=== PATIENT | male | born 1990 | race Caucasian/White ===

== ENCOUNTER 2021-05-14 19:45 | Inpatient (IN) | payer OTHER, SELFPAY ==
--- NOTE | ~2021-05-14 | XR_ITS ---
EXAM: XR foot LT 2V HISTORY: BLOOD BLISTER END OF MAR, POPPED, NOW BIG ABSESS ON 1ST MT COMPARISON: None available FINDINGS: Normal mineralization. No fracture or dislocation. No lytic or blastic lesion. Joint space s maintained. No erosion or periosteal change. Soft tissue swelling over the metatarsal heads. IMPRESSION: Soft tissue swelling at the ball of the foot. No radiographic evidence of osteomyelitis. Reviewed, dictated and finalized at location K. IMPRESSION: Soft tissue swelling at the ball of the foot. No radiographic evidence of osteo myelitis.
[2021-05-14 19:54] VITALS: BP 163/102; PULSE 118; RESP 18; TEMP 36.3; O2SAT 99
--- NOTE | 2021-05-14 20:11 | ED.WOUNDLAC ---
HPI - Wound/Laceration General Chief Complaint: Wound/Laceration Stated Complaint: Left toe/foot wound Time Seen by Provider: 05/14/21 19:58 History of Present Illness HPI narrative: 31-year-old male with type 2 diabetes, hypertension, and dyslipidemia, presents the emergency room with new onset of a wound on the bottom of his left foot. Patient states that he is noncompliant with his diabetic regimen, states has not taken his medications for over 1 year. Patient states wound on the bottom of his foot is painful, foul-smelling. Related Data Home Medications Medication Instructions Recorded Confirmed No Home Medications 05/14/21 05/14/21 Allergies Allergy/AdvReac Type Severity Reaction Status Date / Time No Known Allergies Allergy Verified 05/14/21 20:42 Review of Systems Review of Systems: CONSTITUTIONAL: Denies fever, chills, or sweats. EYES: Denies visual changes, redness, or discharge. ENT: Denies rhinorrhea, congestion, sore throat, or otalgia. CARDIOVASCULAR: Denies chest pain, palpitations, or edema. RESPIRATORY: Denies cough or dyspnea. GASTROINTESTINAL: Denies abdominal pain, nausea, vomiting, or diarrhea. GENITOURINARY: Denies dysuria or hematuria. SKIN: Reports foul-smelling wound on bottom of left foot MUSCULOSKELETAL: Denies back pain, joint pain, or myalgia. NEUROLOGIC: Denies headache, numbness, dizziness, or weakness. PSYCHIATRIC: Denies anxiety or depression. [facility] Past Medical History Medical History (Updated 05/14/21 @ 22:16 by Nena Sol DO) Diabetes type 2, uncontrolled Diabetic peripheral neuropathy Dyslipidemia Hypertension Medical non-compliance Optic neuritis (10/2015) Right optic nerve Social History Social History Smoking status: Never smoker Second hand tobacco smoke exposure: No Alcohol intake: never Substance use: never Substance use type: does not use Spiritual care concerns: No Exam Narrative: GENERAL: Well-appearing, well-nourished, and in no acute distress. HEAD: Normocephalic, atraumatic. EYES: PERRLA and EOMI. CHEST: Clear to auscultation. No respiratory distress. No wheezes rales or rhonchi HEART: Regular rate and rhythm. No murmur heard. Normal peripheral pulses. ABDOMEN: Soft, nontender, nondistended, normal active bowel sounds. EXTREMITIES: Normal range of motion. No edema. SKIN: Plantar surface of left foot: 4 cm circular, full-thickness ulcer with surrounding necrosis to the hallucal area NEURO: No focal deficits. Alert and oriented x3. PSYCH: Normal mood and affect. Course Vital Signs Vital signs: Vital Signs Temperature 36.3 C L 05/14/21 19:54 Pulse Rate 118 H 05/14/21 19:54 Respiratory Rate 18 05/14/21 19:54 Blood Pressure 163/102 H 05/14/21 19:54 Pulse Oximetry 99 05/14/21 19:54 Temperature 36.3 C L 05/14/21 19:54 Pulse Rate 105 H 05/14/21 21:46 Respiratory Rate 18 05/14/21 19:54 Blood Pressure 163/102 H 05/14/21 19:54 Pulse Oximetry 99 05/14/21 19:54 MDM - Wound/Laceration Lab Data Result diagrams: 05/14/21 20:43 05/14/21 20:43 Labs: Lab Results 05/14/21 05/14/21 05/14/21 Range/Units 20:43 20:43 20:43 WBC 8.0 (4.5-10.0) K/mm3 RBC 5.46 (4.6-6.20) M/mm3 Hgb 15.8 (14.0-18.0) g/dL Hct 45.9 (42.0-52.0) % MCV 84.1 (80-100) fl MCH 28.9 (26-34) pg MCHC 34.4 (32-36) g/dl RDW 12.2 (11.5-14.5) % Plt Count 245 (150-375) k/mm3 MPV 9.8 (7.4-10.4) fl Immature Gran % (Auto) 0.4 (0-0.5) % Neut % (Auto) 62.8 (45.5-73.1) % Lymph % (Auto) 25.3 (18.3-44.2) % Holt % (Auto) 10.0 H (2.6-8.5) % Eos % (Auto) 1.0 (0-4.4) % Baso % (Auto) 0.5 (0.2-1.2) % Lymph # (Auto) 2.02 (0.9-3.2) K/mm3 Holt # (Auto) 0.8 H (0.1-0.6) K/mm3 Eos # (Auto) 0.1 (0-0.3) K/mm3 Baso # (Auto) 0.0 (0.0-0.1) K/mm3 Abs Immat Gran (auto) 0.03 (0.00-0.031) K/mm3 Absolute Neuts (auto) 5.0 (1.3
[2021-05-14] MEDS: SODIUM CHLORIDE 0.9% IV 1,000 ML 150 ML IV CONT (20:45)
[2021-05-14 20:56] LABS: Basophils Percent Auto 0.5 % (0.2-1.2); Eosinophils Absolute Auto 0.1 K/mm3 (0-0.3); Hematocrit 45.9 % (42.0-52.0); Hemoglobin 15.8 g/dL (14.0-18.0); Immature Granulocyte Absolute 0.03 K/mm3 (0.00-0.031); Immature Granulocyte Percent A 0.4 % (0-0.5); Lymphocytes Absolute Auto 2.02 K/mm3 (0.9-3.2); Lymphocytes Percent Auto 25.3 % (18.3-44.2); Mean Corpuscular HGB Conc 34.4 g/dl (32-36); Mean Corpuscular Hemoglobin 28.9 pg (26-34); Mean Corpuscular Volume 84.1 fl (80-100); Mean Platelet Volume 9.8 fl (7.4-10.4); Monocytes Absolute Auto 0.8 K/mm3 (0.1-0.6); Neutrophils Percent Auto 62.8 % (45.5-73.1); Platelet Count Result 245 k/mm3 (150-375); Red Blood Count 5.46 M/mm3 (4.6-6.20); Red Cell Distribution Width 12.2 % (11.5-14.5)
[2021-05-14 21:06] LABS: Alanine Aminotransferase 23 U/L (4-50); Albumin Level 4.5 g/dL (3.5-5.1); Alkaline Phosphatase 108 U/L (38-126); Anion Gap 8 mmol/L (8-16); Aspartate Amino Transferase 26 U/L (17-59); Bilirubin,Total 0.4 mg/dL (0.2-1.3); Blood Urea Nitrogen 15 mg/dL (9-20); Calcium 9.3 mg/dL (8.4-10.2); Carbon Dioxide 29 mmol/L (22-30); Chloride 98 mmol/L (98-107); Estimated CRCL calculation 124 ml/min; Estimated Glomerular Filt Rate > 60; Glucose 368 mg/dL (65-110); Potassium 4.4 mmol/L (3.4-5.0); Sodium 135 mmol/L (137-145)
[2021-05-14 21:07] LABS: Lactic Acid Reflex 1.7 mmol/L (0.7-2.1)
[2021-05-14 21:15] LABS: Hemoglobin A1C 9.5 % (<5.7)
[2021-05-14 21:46] VITALS: PULSE 105
[2021-05-14] MEDS: METOPROLOL TARTRATE INJ 5 MG/5 ML VIAL IV PUSH (21:46)
[2021-05-14] MEDS: INSULIN ASPART (*BKC) 100 UNITS/ML 6 UNITS SUB-Q (21:47)
--- NOTE | 2021-05-14 22:09 | PM.IMHP ---
H&P: HPI History of Present Illness Date/Time: 05/14/21 22:09 Chief Complaint: Foot wound Narrative: 31-year-old male with past medical history of type 2 diabetes mellitus, hyperlipidemia, obesity and hypertension who presented to the ER from home due to left forefoot diabetic wound. Patient reports that he has had a wound on his foot since March. Started with what looks like a blood blister. He left the wound intact and was using Neosporin. However couple of days ago the skin overlying the wound started to change in color and texture. He had sloughing of the skin and subsequently removed it. About 2 days ago he noticed foul smelling dark drainage from the wound. He denied having any fevers or chills. He has very little sensation in his feet due to diabetic peripheral neuropathy. 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 He has chronically uncontrolled diabetes mellitus. He reports that he was initially started on Lantus and sliding scale insulin. He then switched to just metformin. When he ran out of metformin 2 years ago he never followed up to get a refill. He has not been on any of his medications in 2 years. He was previously also on lisinopril, a cholesterol medicine and metoprolol. He reports that over the last 2 years he has lost at least 50 lb. He reports that previous laying when they actually had a scale at home the scale would read error as he weighed more than 300 lb. Today he weighs 255 lb. They got rid of the scale at home when his sister developed an eating disorder to he has not weighed himself in quite some time. He denies any vision changes. His last eye exam was 2 years ago. He denies having any fevers or chills. He received a 2nd COVID vaccine in December 2020 and caught COVID in January 2021. He has not had any upper respiratory symptoms. He reports feeling slightly nauseated today because he gets a significant amount of social anxiety. Review of Systems Review of Systems: 12 systems were reviewed with pertinent positives and negatives per HPI. Except as documented in the HPI, all other systems were reviewed and are negative. [facility] [place] Past Medical History Medical History (Updated 05/14/21 @ 22:16 by Nena Sol DO) Diabetes type 2, uncontrolled Diabetic peripheral neuropathy Dyslipidemia Hypertension Medical non-compliance Optic neuritis (10/2015) Right optic nerve Surgical History Surgical History (Updated 05/15/21 @ 01:03 by Nena Sol DO) No significant past surgical history Family History Family History Mother Rheumatoid arthritis Father Unknown family medical history Social History Social History (Updated 05/15/21 @ 01:05 by Nena Sol DO) Social History: He is single and has never been . He does not have any children. The patient lives at home with his mother and stepfather as well as several younger siblings. He is a lifelong nonsmoker and does not drink alcohol. 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 Smoking status: Never smoker Second hand tobacco smoke exposure: No Alcohol intake: never Substance use: never Substance use type: does not use Spiritual care concerns: No Meds Home Medications and Allergies Home Medications Medication Instructions Recorded Confirmed Type No Home Medications 05/14/21 05/14/21 History Allergies Allergy/AdvReac Type Severity Reaction Status Date / Time No Known Allergies Allergy Verified 05/14/21 20:42 Vital Signs Vital Signs - 24 hr 05/14/21 19:54 05/14/21 21:46 Temperature 97.3 F L Pulse Rate 118 H 105 H Respiratory Rate 18 Blood Pressure 163/102 H Pulse Oximetry 99 Exam Narrative: PHYSICAL EXAM: WEIGHT 114.5 kg BMI 33.3 General: No acute distress, obese HEENT: Mucous membranes are moist, no oral pharyngeal erythema,
[2021-05-14] MEDS: SODIUM CHLORIDE 0.9% IV 1,000 ML 999 ML IV CONT (22:43)
--- NOTE | 2021-05-14 23:25 | ADMGEN ---
This patient, Taqueria Shelton, was admitted to [address] [place] [address] Room [facility] at 2300. Patient/family oriented to hospital policies and general routines including ID bracelet, bed and alarms, visiting hours, pain management, procedures, bathroom and other care routines, personal items, smoking policy, room service/diet, and visiting hours. Information on how to activate the Rapid Response Team has been discussed. Patient/Family are encouraged to report perceived risks to care and to ask questions if they do not understand what they are told or what they should do.
[2021-05-15] VITALS (9 sets, daily range): BP systolic 122–145; BP diastolic 53–93; PULSE 80–102; RESP 18–21; TEMP 36.2–36.5; O2SAT 99–100; BMI 33.9
[2021-05-15 01:00] LABS: Glucose Point of Care 330 mg/dl (65-105)
[2021-05-15 05:27] LABS: Hematocrit 42.7 % (42.0-52.0); Hemoglobin 14.5 g/dL (14.0-18.0); Mean Corpuscular Hemoglobin 28.9 pg (26-34); Mean Corpuscular Volume 85.2 fl (80-100); Mean Platelet Volume 9.7 fl (7.4-10.4); Platelet Count Result 212 k/mm3 (150-375); Red Blood Count 5.01 M/mm3 (4.6-6.20); Red Cell Distribution Width 12.1 % (11.5-14.5)
[2021-05-15 05:36] LABS: Cholesterol 189 mg/dL (0-200); HDL Direct 28 mg/dL; Triglycerides 417 mg/dL (<150)
[2021-05-15 05:45] LABS: Potassium 3.8 mmol/L (3.4-5.0)
[2021-05-15 05:46] LABS: LDL Cholesterol Direct 76 mg/dL
[2021-05-15 05:58] LABS: Anion Gap 6 mmol/L (8-16); Blood Urea Nitrogen 13 mg/dL (9-20); CRP 1.5 mg/dL (<1.0); Calcium 8.4 mg/dL (8.4-10.2); Carbon Dioxide 27 mmol/L (22-30); Chloride 102 mmol/L (98-107); Estimated CRCL calculation 201 ml/min; Estimated Glomerular Filt Rate > 60; Glucose 265 mg/dL (65-110); Sodium 135 mmol/L (137-145)
[2021-05-15 07:02] LABS: Erythrocyte Sedimentation Rate 20 mm/hr (0-20)
[2021-05-15 07:40] LABS: Glucose Point of Care 235 mg/dl (65-105)
[2021-05-15] MEDS: INSULIN ASPART (*BKC) 100 UNITS/ML SUB-Q ×3 (07:49→16:46)
[2021-05-15] MEDS: lisinopriL 20 MG TABLET PO (08:03)
[2021-05-15] MEDS: metFORMIN HCL 500 MG TABLET PO ×2 (08:03→16:47)
[2021-05-15] MEDS: ATORVASTATIN 20 MG TABLET PO (08:03)
[2021-05-15] MEDS: ENOXAPARIN 40 MG/0.4 ML SYRINGE SUB-Q (08:03)
--- NOTE | 2021-05-15 09:33 | PM.IMPN ---
Progress Note: A&P Assessment and Plan (1) Diabetic ulcer of left foot: Qualifiers: Diabetic foot ulcer location: midfoot Diabetes mellitus type: type 2 Non-pressure ulcer stage: unspecified non-pressure ulcer stage Qualified Code(s): E11.621 - Type 2 diabetes mellitus with foot ulcer; L97.429 - Non-pressure chronic ulcer of left heel and midfoot with unspecified severity Code(s): E11.621 - Type 2 diabetes mellitus with foot ulcer; L97.529 - Non-pressure chronic ulcer of other part of left foot with unspecified severity Status: Acute Assessment and Plan: Surgical consult for possible debridement. ESR is normal, white count is normal, no systemic symptoms to represent sepsis. Low suspicion of osteomyelitis given x-ray is negative. Continue IV antibiotics. Cultures pending (2) Diabetic infection of left foot: Code(s): E11.628 - Type 2 diabetes mellitus with other skin complications; L08.9 - Local infection of the skin and subcutaneous tissue, unspecified Status: Acute Assessment and Plan: See plan above (3) Type 2 diabetes mellitus with hyperglycemia: Qualifiers: Diabetes mellitus alf insulin use: without alf use Qualified Code(s): E11.65 - Type 2 diabetes mellitus with hyperglycemia Code(s): E11.65 - Type 2 diabetes mellitus with hyperglycemia Status: Acute Assessment and Plan: Try to manage blood sugars in the hospital to allow for proper healing. Continue sliding scale insulin. Patient has significant noncompliance with elevated A1c (4) Essential hypertension: Code(s): I10 - Essential (primary) hypertension Status: Acute Assessment and Plan: Monitor (5) Medical non-compliance: Code(s): Z91.19 - Patient's noncompliance with other medical treatment and regimen Status: Acute Assessment and Plan: Discussed the patient in detail, he will be more compliant in the future Subjective Date/time seen: 05/15/21 09:33 Patient feels okay today, no complaints. Exam Narrative: PHYSICAL EXAM: WEIGHT 114.5 kg BMI 33.3 General: No acute distress, obese HEENT: Mucous membranes are moist, no oral pharyngeal erythema, pupils are equal and reactive Respiratory: Clear to auscultation bilaterally, no increased work of breathing Cardiovascular: Sinus tachycardia, 2+ bilateral radial pedal pulses Gastrointestinal: Soft, nontender, nondistended, positive bowel sounds Skin: No jaundice, no pallor Musculoskeletal: Ulceration to the base of the 1st metatarsal on the ball of the foot with surrounding black necrotic appearing tissue, owned was probed the patient has no sensation to the area, fascial tissue noted Neurological: Decreased sensation of bilateral feet, speech is clear, no facial asymmetry, no localizing neurologic deficits noted on limited exam Psychiatric: Appropriate mood and affect, pleasant and cooperative : Deferred Hematologic/lymphatic: No significant lymphadenopathy, no petechiae, no bruising Objective Data Vital Signs Vital Signs: Vital Signs - 24 hr 05/14/21 19:54 05/14/21 21:46 05/15/21 00:29 Temperature 97.3 F L 97.7 F Pulse Rate 118 H 105 H 102 H Respiratory Rate 18 21 H Blood Pressure 163/102 H 145/93 H Pulse Oximetry 99 100 05/15/21 04:00 05/15/21 06:00 05/15/21 08:00 Temperature 97.1 F L Pulse Rate 80 87 98 Respiratory Rate 20 Blood Pressure 133/91 H Pulse Oximetry 99 Intake/Output Intake/Output: Intake & Output 05/12/21 05/13/21 05/14/21 05/15/21 23:59 23:59 23:59 23:59 Intake Total 1000 240 Balance 1000 240 Meds/Results Medications: Active Medications Generic Name Dose Route Start Last Admin Trade Name Freq PRN Reason Stop Dose Admin Atorvastatin Calcium 20 mg 05/15/21 09:00 05/15/21 08:03 Atorvastatin 20 Mg Tablet PO 20 mg DAILY SUNITA Administration Dextrose 12.5 gm 05/15/21 00:53 Dextrose 50% 25 Gm/50 Ml Syringe
--- NOTE | 2021-05-15 11:18 | PM.CNGS ---
Assessment and Plan Assessment and plan (1) Diabetic ulcer of left foot: Qualifiers: Diabetes mellitus type: type 2 Diabetic foot ulcer location: midfoot Non-pressure ulcer stage: unspecified non-pressure ulcer stage Qualified Code(s): E11.621 - Type 2 diabetes mellitus with foot ulcer; L97.429 - Non-pressure chronic ulcer of left heel and midfoot with unspecified severity Code(s): E11.621 - Type 2 diabetes mellitus with foot ulcer; L97.529 - Non-pressure chronic ulcer of other part of left foot with unspecified severity Status: Acute Assessment and Plan: Significant callus overlying the ulcer. Will proceed with excisional debridement at the bedside. No osteomyelitis by plain films and very little evidence of cellulitis by exam. (2) Diabetes type 2, uncontrolled: Qualifiers: Glycemic state: with hyperglycemia Qualified Code(s): E11.65 - Type 2 diabetes mellitus with hyperglycemia Status: Acute Assessment and Plan: hospitalist service managing. (3) Medical non-compliance: Code(s): Z91.19 - Patient's noncompliance with other medical treatment and regimen Status: Acute History of Present Illness Consult details Consult date: 05/15/21 Reason for consult: wound care ( Left 1st metatarsal diabetic foot ulcer) Narrative: patient is a 31-year-old man who stopped taking his diabetic medications entirely over a year ago. For the last 2 months he has noticed 1st a blister than a wound over the 1st metatarsal on the plantar surface of his left foot. This has gotten progressively worse. He came to the emergency room yesterday and was admitted last night. We have been asked to see him regarding a diabetic foot ulcer on his 1st metatarsal. Plain films did not show osteomyelitis. He has no sensation in the foot whatsoever. Hemoglobin A1c was 9.. Blood sugar on admission was 368. This morning it is 265. He has not had any fever or chills. Review of Systems Review of Systems: All systems reviewed & are unremarkable except as noted in HPI and below Constitutional: Constitutional: Denies chills and Denies fever(s) Cardiovascular: Cardiovascular: Denies chest pain, Denies diaphoresis, Denies dyspnea and Denies paroxysmal nocturnal dyspnea Respiratory: Respiratory: Denies chest congestion, Denies cough and Denies dyspnea Integumentary/Breasts: Skin/Breast: Denies lesions and Denies rash PMFSH Past Medical History Medical History Diabetes type 2, uncontrolled Diabetic peripheral neuropathy Dyslipidemia Hypertension Medical non-compliance Optic neuritis (10/2015) Right optic nerve Surgical History Surgical History No significant past surgical history Family History Family History (Reviewed 05/15/21 @ 11: by Kin Barger MD) Mother Rheumatoid arthritis Father Unknown family medical history Social History Social History Social History: He is single and has never been . He does not have any children. The patient lives at home with his mother and stepfather as well as several younger siblings. He is a lifelong nonsmoker and does not drink alcohol. 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 Smoking status: Never smoker Second hand tobacco smoke exposure: No Alcohol intake: never Substance use: never Substance use type: does not use Spiritual care concerns: No Meds Home Medications and Allergies Home Medications Medication Instructions Recorded Confirmed Type No Home Medications 05/14/21 05/14/21 History Allergies Allergy/AdvReac Type Severity Reaction Status Date / Time No Known Allergies Allergy Verified 05/14/21 20:42 Vital Signs Vital Signs - 24 hr 05/14/21 19:54 05/14/21 21:46 05/15/21 00:29 Temperature
[2021-05-15 11:40] LABS: Glucose Point of Care 316 mg/dl (65-105)
[2021-05-15 11:40] LABS: Glucose Point of Care 341 mg/dl (65-105)
--- NOTE | 2021-05-15 12:39 | W.PM.PROC2 ---
Procedure Note - Detailed Date of Procedure 05/15/21 Pre-op Diagnosis Diabeti Foot Ulcer Post-op Diagnosis Same Procedure Performed Excisional debridement skin and subcutaneous left 1st metatarsal Liliane perforans ulcer Surgeon Kin Barger MD Anesthesia None Indications patient has out a controlled diabetes and a painful left 1st metatarsal Liliane perforans ulcer. There was a large amount of callus and possibly some purulent material under the callus. He has no sensation of the area. Will debride at the bedside. Findings No purulent fluid noted. Does have a 1.5 cm ulcer that appears clean. 3.7 x 3.6 cm excisional debridement of skin and subcutaneous. Description of Procedure The patient was in his hospital bed. The left foot was prepped with Betadine. Callus including some subcutaneous was excised starting in the middle of the Liliane perforans ulcer. This was mostly callus and 95% of it was excisionally debrided. There was a 1.5 cm nelson perforans ulcer over the 1st metatarsal. A small amount of necrotic material here was excised. Bleeding was controlled with silver nitrate cautery. No purulent fluid or black and tissue was noted other than the callus. Patient tolerated well. Wound was dressed with a small piece of Xeroform gauze, 4x4s and Kerlix wrap. Estimated Blood Loss -2 Drains No Packing No Pathology None sent Complications No immediate complications Condition Stable Disposition Floor
[2021-05-15 16:39] LABS: Glucose Point of Care 237 mg/dl (65-105)
[2021-05-15] MEDS: SILVER NITRATE (*SP) STICK 1 EACH TOPICAL (16:47)
[2021-05-15 20:24] LABS: Glucose Point of Care 257 mg/dl (65-105)
[2021-05-16] VITALS (9 sets, daily range): BP systolic 116–133; BP diastolic 78–84; PULSE 68–100; RESP 18–21; TEMP 36.5–36.9; O2SAT 97–100; BMI 33.9
[2021-05-16 06:14] LABS: Estimated CRCL calculation 201 ml/min; Estimated Glomerular Filt Rate > 60
[2021-05-16 07:47] LABS: Glucose Point of Care 239 mg/dl (65-105)
[2021-05-16] MEDS: lisinopriL 20 MG TABLET PO (08:15)
[2021-05-16] MEDS: metFORMIN HCL 500 MG TABLET PO (08:15)
[2021-05-16] MEDS: ENOXAPARIN 40 MG/0.4 ML SYRINGE SUB-Q (08:15)
[2021-05-16] MEDS: INSULIN ASPART (*BKC) 100 UNITS/ML SUB-Q ×3 (08:16→16:48)
[2021-05-16] MEDS: ATORVASTATIN 20 MG TABLET PO (08:16)
--- NOTE | 2021-05-16 11:02 | PM.PNGS ---
Progress Note: A&P Assessment and Plan (1) Diabetic ulcer of left foot: Qualifiers: Diabetic foot ulcer location: midfoot Diabetes mellitus type: type 2 Non-pressure ulcer stage: unspecified non-pressure ulcer stage Qualified Code(s): E11.621 - Type 2 diabetes mellitus with foot ulcer; L97.429 - Non-pressure chronic ulcer of left heel and midfoot with unspecified severity Code(s): E11.621 - Type 2 diabetes mellitus with foot ulcer; L97.529 - Non-pressure chronic ulcer of other part of left foot with unspecified severity Status: Acute Assessment and Plan: S/p bedside debridement of left diabetic foot ulcer yesterday. Wound care evaluated the patient today. Will start Xeroform dressing changes daily. Okay to be discharged home from our standpoint. Follow-up with Dr. Barger in 1 week. Recommended the patient establish care with a Resource Room Teacher for proper shoes and offloading insoles, as well as to surgically evaluate any need for further intervention to prevent future complications. (2) Diabetes type 2, uncontrolled: Qualifiers: Glycemic state: with hyperglycemia Qualified Code(s): E11.65 - Type 2 diabetes mellitus with hyperglycemia Status: Acute Assessment and Plan: Stressed the importance of following with a PCP after discharge for diabetic management and complying with medication. Management per Hospitalist. (3) Medical non-compliance: Code(s): Z91.19 - Patient's noncompliance with other medical treatment and regimen Status: Acute Additional Plan I have discussed the patient's case and plan of care with Dr. Barger. Subjective Subjective Date/Time Seen: 05/16/21 11:02 Patient reports: no new complaints and afebrile Interval history: 31 yo M with uncontrolled diabetes mellitus that stopped taking his diabetic medication over a year ago, who presented to the ER with a left foot ulcer on the plantar aspect of the foot over the head of the 1st metatarsal. He was admitted and started on broad-spectrum IV antibiotics. Dr. Barger performed a bedside excisional debridement of the diabetic left foot ulcer yesterday. Chart reviewed and the patient was seen and examined this morning. The wound care nurses were also consulted and saw the patient prior to my arrival. They had already assessed and bandaged his wound, therefore I did not remove the dressing myself this morning. The patient has no specific complaints. Review of Systems Review of Systems: All systems reviewed & are unremarkable except as noted in HPI and below Exam Const: General: comfortable and no acute distress Orientation/consciousness: patient oriented x3 Skin: Other: Left foot with dressing dry and intact. Extrem: Left lower extremity: full ROM, normal capillary refill and foot (neuropathy) Details: toes with normal ROM and no edema Psych: Insight: Fair insight present (Psych) Judgement: Fair judgement present (Psych) Objective Data Vital Signs Vital Signs: Vital Signs - 24 hr 05/15/21 12:00 05/15/21 14:00 05/15/21 16:00 Temperature 97.5 F L Pulse Rate 96 94 90 Respiratory Rate 18 Blood Pressure 122/53 L Pulse Oximetry 99 05/15/21 20:00 05/15/21 22:00 05/16/21 00:00 Temperature 97.2 F L Pulse Rate 92 90 85 Respiratory Rate 18 21 H Blood Pressure 128/88 Pulse Oximetry 99 100 05/16/21 04:00 05/16/21 06:00 05/16/21 08:00 Temperature 97.7 F Pulse Rate 68 84 90 Respiratory Rate 21 H Blood Pressure 116/81 Pulse Oximetry 100 Intake/Output Intake/Output: Intake & Output 05/13/21 05/14/21 05/15/21 05/16/21 23:59 23:59 23:59 23:59 Intake Total 1000 2540 1440 Output Total 600 1600 Balance 1000 1940 -160 Meds/Results Medications: Active Medications Generic Name Dose Route Start Last Admin Trade Name Freq PRN Reason Stop Dose Admin Atorvastatin Calcium 20 mg 05/15/21 09:00 05/16/21 08:16 Atorvastatin 20 Mg Tablet PO 20 mg DAILY SUNITA Admin
[2021-05-16 11:26] LABS: Vancomycin Trough 8.3 ug/mL (10.0-20.0)
[2021-05-16 11:35] LABS: Glucose Point of Care 256 mg/dl (65-105)
--- NOTE | 2021-05-16 14:30 | PM.IMPN ---
Progress Note: A&P Assessment and Plan (1) Diabetic ulcer of left foot: Qualifiers: Diabetic foot ulcer location: midfoot Diabetes mellitus type: type 2 Non-pressure ulcer stage: unspecified non-pressure ulcer stage Qualified Code(s): E11.621 - Type 2 diabetes mellitus with foot ulcer; L97.429 - Non-pressure chronic ulcer of left heel and midfoot with unspecified severity Code(s): E11.621 - Type 2 diabetes mellitus with foot ulcer; L97.529 - Non-pressure chronic ulcer of other part of left foot with unspecified severity Status: Acute Assessment and Plan: sp surgerical debridement. Continue IV antibiotics. (2) Diabetic infection of left foot: Code(s): E11.628 - Type 2 diabetes mellitus with other skin complications; L08.9 - Local infection of the skin and subcutaneous tissue, unspecified Status: Acute Assessment and Plan: See plan above (3) Type 2 diabetes mellitus with hyperglycemia: Qualifiers: Diabetes mellitus custodial insulin use: without termite control technician use Qualified Code(s): E11.65 - Type 2 diabetes mellitus with hyperglycemia Code(s): E11.65 - Type 2 diabetes mellitus with hyperglycemia Status: Acute Assessment and Plan: increase dm medication consult dm educator and dietican. Continue sliding scale insulin. Patient has significant noncompliance with elevated A1c (4) Essential hypertension: Code(s): I10 - Essential (primary) hypertension Status: Acute Assessment and Plan: Monitor (5) Medical non-compliance: Code(s): Z91.19 - Patient's noncompliance with other medical treatment and regimen Status: Acute Assessment and Plan: importance of compliance discussed in length Subjective Date/time seen: 05/16/21 14:30 Interval history: 31-year-old male with past medical history of type 2 diabetes mellitus, hyperlipidemia, obesity and hypertension who presented to the ER from home due to left forefoot diabetic wound. Pt states he has not been taking his DM medications. Pt started on metformin and Januvia here. DM educator and holiday detector operator consulted. Sugars are still 250. Hopeful discharge ileana Am. Review of Systems Review of Systems: All systems reviewed & are unremarkable except as noted in HPI and below Exam Narrative: Overweight younger man Respiratory: Clear to auscultation bilaterally, no increased work of breathing Cardiovascular: Sinus tachycardia, 2+ bilateral radial pedal pulses Gastrointestinal: Soft, nontender, nondistended, positive bowel sounds Skin: No jaundice, no pallor Musculoskeletal: L foot with dressing Psychiatric: Appropriate mood and affect, pleasant and cooperative Objective Data Vital Signs Vital Signs: Vital Signs - 24 hr 05/15/21 16:00 05/15/21 20:00 05/15/21 22:00 Temperature 36.2 C L Pulse Rate 90 92 90 Respiratory Rate 18 21 H Blood Pressure 128/88 Pulse Oximetry 99 100 05/16/21 00:00 05/16/21 04:00 05/16/21 06:00 Temperature 36.5 C Pulse Rate 85 68 84 Respiratory Rate 21 H Blood Pressure 116/81 Pulse Oximetry 100 05/16/21 08:00 05/16/21 12:00 Temperature Pulse Rate 90 84 Respiratory Rate Blood Pressure Pulse Oximetry Intake/Output Intake/Output: Intake & Output 05/13/21 05/14/21 05/15/21 05/16/21 23:59 23:59 23:59 23:59 Intake Total 1000 2540 2280 Output Total 600 1600 Balance 1000 1940 680 Meds/Results Medications: Active Medications Generic Name Dose Route Start Last Admin Trade Name Freq PRN Reason Stop Dose Admin Atorvastatin Calcium 20 mg 05/15/21 09:00 05/16/21 08:16 Atorvastatin 20 Mg Tablet PO 20 mg DAILY SUNITA Administration Dextrose 12.5 gm 05/15/21 00:53 Dextrose 50% 25 Gm/50 Ml Syringe IV PUSH PRN PRN Hypoglycemia Protocol Enoxaparin Sodium 40 mg 05/15/21 09:00 05/16/21 08:15 Enoxaparin 40 Mg/0.4 Ml Syringe SUB-Q 40 mg DAILY SUNITA Administra
[2021-05-16 16:44] LABS: Glucose Point of Care 220 mg/dl (65-105)
[2021-05-16 20:34] LABS: Glucose Point of Care 196 mg/dl (65-105)
[2021-05-17] VITALS: PULSE 80
[2021-05-17 04:00] VITALS: PULSE 80
[2021-05-17 04:28] VITALS: BP 120/76; PULSE 83; RESP 20; TEMP 36.1; O2SAT 99
[2021-05-17 07:51] LABS: Glucose Point of Care 237 mg/dl (65-105)
[2021-05-17 08:00] VITALS: PULSE 87
[2021-05-17] MEDS: ENOXAPARIN 40 MG/0.4 ML SYRINGE SUB-Q (08:42)
[2021-05-17] MEDS: ATORVASTATIN 20 MG TABLET PO (08:42)
[2021-05-17] MEDS: lisinopriL 20 MG TABLET PO (08:42)
[2021-05-17] MEDS: INSULIN ASPART (*BKC) 100 UNITS/ML SUB-Q ×2 (08:43→11:40)
--- NOTE | 2021-05-17 09:56 | PM.PNGS ---
Progress Note: A&P Assessment and Plan (1) Diabetic ulcer of left foot: Qualifiers: Diabetic foot ulcer location: midfoot Diabetes mellitus type: type 2 Non-pressure ulcer stage: unspecified non-pressure ulcer stage Qualified Code(s): E11.621 - Type 2 diabetes mellitus with foot ulcer; L97.429 - Non-pressure chronic ulcer of left heel and midfoot with unspecified severity Code(s): E11.621 - Type 2 diabetes mellitus with foot ulcer; L97.529 - Non-pressure chronic ulcer of other part of left foot with unspecified severity Status: Acute Assessment and Plan: Continue Xeroform dressing changes daily and cover with gauze and an dami wrap. Discussed with the patient to avoid applying pressure to the ulcer with ambulation, attempt to try bearing weight on the heel. Stressed the need to see a Head Worker as soon as possible to set him up with appropriate offloading insoles and shoes. Recommended he stay out of work until seen by the Head Worker and fitted for proper shoes. Okay to discharge from our standpoint. Follow-up with Dr. Barger in 1 week. (2) Diabetes type 2, uncontrolled: Qualifiers: Glycemic state: with hyperglycemia Qualified Code(s): E11.65 - Type 2 diabetes mellitus with hyperglycemia Status: Acute (3) Medical non-compliance: Code(s): Z91.19 - Patient's noncompliance with other medical treatment and regimen Status: Acute Additional Plan I have discussed the patient's case and plan of care with Dr. Barger. Subjective Subjective Date/Time Seen: 05/17/21 09:56 Patient reports: no new complaints and afebrile Interval history: Patient seen and examined with Dr. Barger. He has no specific complaints at this time. Exam Const: General: no acute distress and alert Orientation/consciousness: patient oriented x3 Skin: Other: Left foot dressing removed revealing the ulcer on the plantar aspect of his foot over the 1st metatarsal with surrounding callus, the wound bed appears dusky with a firm wound bed but without any purulent drainage or necrotic tissue. Extrem: Right lower extremity: normal to inspection Left lower extremity: full ROM and normal capillary refill; no edema Psych: Insight: Fair insight present (Psych) Objective Data Vital Signs Vital Signs: Vital Signs - 24 hr 05/16/21 12:00 05/16/21 14:49 05/16/21 16:00 Temperature 98.5 F Pulse Rate 84 94 100 Respiratory Rate 18 Blood Pressure 130/78 Pulse Oximetry 100 05/16/21 19:24 05/16/21 20:00 05/17/21 00:00 Temperature 97.8 F Pulse Rate 97 86 80 Respiratory Rate 20 20 Blood Pressure 133/84 Pulse Oximetry 97 97 05/17/21 04:00 05/17/21 04:28 05/17/21 08:00 Temperature 97 F L Pulse Rate 80 83 87 Respiratory Rate 20 Blood Pressure 120/76 Pulse Oximetry 99 Intake/Output Intake/Output: Intake & Output 05/14/21 05/15/21 05/16/21 05/17/21 23:59 23:59 23:59 23:59 Intake Total 1000 2540 3270 1230 Output Total 600 1600 Balance 1000 1940 1670 1230 Meds/Results Medications: Active Medications Generic Name Dose Route Start Last Admin Trade Name Freq PRN Reason Stop Dose Admin Atorvastatin Calcium 20 mg 05/15/21 09:00 05/17/21 08:42 Atorvastatin 20 Mg Tablet PO 20 mg DAILY SUNITA Administration Dextrose 12.5 gm 05/15/21 00:53 Dextrose 50% 25 Gm/50 Ml Syringe IV PUSH PRN PRN Hypoglycemia Protocol Enoxaparin Sodium 40 mg 05/15/21 09:00 05/17/21 08:42 Enoxaparin 40 Mg/0.4 Ml Syringe SUB-Q 40 mg DAILY SUNITA Administration Glucagon 1 mg 05/15/21 00:53 Glucagon For Inj 1 Mg Vial IM PRN PRN Hypoglycemia Protocol Glucose 15 gm 05/15/21 00:53 Glucose Oral Gel 15 Gm Of Glucse In 37.5 Gm Tube PO PRN PRN Hypoglycemia Protocol Imipenem/Cilastatin Sodium 500 100 mls @ 300 mls/hr 05/15/21 05:00 05/17/21 05:12 mg/ Sodium Chloride IVPB Infused Q6H SUNITA Infusion Dextrose 1,000 mls
[2021-05-17 11:11] LABS: Glucose Point of Care 210 mg/dl (65-105)
--- NOTE | 2021-05-17 11:33 | PCDIET ---
Nutrition consult for diabetic education. See Nutritional Teaching Intervention. Thank you for the consult.
--- NOTE | 2021-05-17 11:36 | PM.DS ---
DS: Admitting Diagnosis Discharge Date 05/17/2021 Admitting Diagnosis Foot wound DS: Discharge Diagnosis Discharge Diagnosis (1) Diabetic ulcer of left foot: Qualifiers: Diabetes mellitus type: type 2 Diabetic foot ulcer location: midfoot Non-pressure ulcer stage: unspecified non-pressure ulcer stage Qualified Code(s): E11.621 - Type 2 diabetes mellitus with foot ulcer; L97.429 - Non-pressure chronic ulcer of left heel and midfoot with unspecified severity Code(s): E11.621 - Type 2 diabetes mellitus with foot ulcer; L97.529 - Non-pressure chronic ulcer of other part of left foot with unspecified severity Status: Acute Assessment and Plan: sp surgerical debridement. Pt was on iv abx Vanc and Primaxin now can transition off ABX. Bc are negative to date. Pt can wash foot with soap and water and use bandage. Pt to off load for 1-2 weeks, follow up with surgery follow up with podiatry. (2) Diabetic infection of left foot: Code(s): E11.628 - Type 2 diabetes mellitus with other skin complications; L08.9 - Local infection of the skin and subcutaneous tissue, unspecified Status: Acute Assessment and Plan: See plan above (3) Type 2 diabetes mellitus with hyperglycemia: Qualifiers: Diabetes mellitus alf insulin use: without recreation leader use Qualified Code(s): E11.65 - Type 2 diabetes mellitus with hyperglycemia Code(s): E11.65 - Type 2 diabetes mellitus with hyperglycemia Status: Acute Assessment and Plan: Pt seen by dm educator and wealth management consultant. Patient has significant noncompliance with elevated A1c, pt has been off DM medications for 2 years. Metformin and Januvia restarted. Pt to follow his blood sugars at home and establish with a PCP. for DM recheck. (4) Essential hypertension: Code(s): I10 - Essential (primary) hypertension Status: Acute Assessment and Plan: Monitor pt restarted on lisinopril (5) Medical non-compliance: Code(s): Z91.19 - Patient's noncompliance with other medical treatment and regimen Status: Acute Assessment and Plan: importance of compliance discussed in length and need to be compliant other high risk of complications DS: Summary Hospital Course Hospital Course: 31-year-old male with past medical history of type 2 diabetes mellitus, hyperlipidemia, obesity and hypertension who presented to the ER from home due to left forefoot diabetic wound. Pt states he has not been taking his DM medications for 2 years. Pt started on metformin and Januvia here. DM educator and wealth management consultant consulted. Sugars are still 250. Hopeful discharge today. Time Spent with Patient Time attestation: Total time spent providing and/or coordinating discharge services:45 minutes on day of discharge Exam Narrative: Overweight younger man Respiratory: Clear to auscultation bilaterally, no increased work of breathing Cardiovascular: Sinus tachycardia, 2+ bilateral radial pedal pulses Gastrointestinal: Soft, nontender, nondistended, positive bowel sounds Skin: No jaundice, no pallor Musculoskeletal: L foot with dressing Psychiatric: Appropriate mood and affect, pleasant and cooperative DS: Data Data Completed and Pending Labs on day of discharge: Labs from last 24 hours 05/17/21 05/17/21 05/16/21 11:08 07:31 19:52 POC Capillary Glucose 210 H 237 H 196 H 05/16/21 16:42 POC Capillary Glucose 220 H Preliminary micro results at discharge 05/14/21 22:23 Blood Culture - Preliminary Blood 05/14/21 22:23 Blood Culture - Preliminary Blood Discharge Plan Discharge Attending physician on discharge: shonda Consulting providers: Jeremy Herbert ; Kin Barger Discharging Clinician: Maye Flores Anticipated Discharge Date/Time: 05/17/21 11:34 Patient Disposition: Home, Self-Care Activity: may shower and as tolerated Diet: diabetic Wound Care Instr
--- NOTE | 2021-05-17 11:52 | PC.NURSE ---
On 05/17/21 [employer] Student Mitra Lomas performed an assessment and provided care to this patient. I have reviewed her documentation in [facility] and agree with her assessment.
== END 2021-05-17 15:00 | disposition home or self-care (01) | DRG 380 ==
LOC: ANHED 20:57 → ANH2MED 23:13 → ANHIMU 05-18 09:42
PROVIDERS: Admitting Provider Internal Medicine; Emergency Provider Nurse Practitioner Family; Visit Provider Family Medicine
DX: E11.621 Type 2 diabetes mellitus with foot ulcer (principal); L97.529 Non-pressure chronic ulcer of other part of left foot with unspecified severity; E11.65 Type 2 diabetes mellitus with hyperglycemia; I10 Essential (primary) hypertension; E78.5 Hyperlipidemia, unspecified; E11.42 Type 2 diabetes mellitus with diabetic polyneuropathy; E11.628 Type 2 diabetes mellitus with other skin complications; L08.9 Local infection of the skin and subcutaneous tissue, unspecified; E66.9 Obesity, unspecified; Z68.33 Body mass index [BMI] 33.0-33.9, adult; Z91.19 Patient's noncompliance with other medical treatment and regimen; Z86.16 Personal history of COVID-19
CPT/HCPCS: 36415; 73620; 80048; 80053; 80061; 80202; 82565; 82948; 83036; 83605; 85025; 85027; 85652; 86140; 87040; 87070; 87147; 87181; 87186; 87205; 96361; 96374; 99285; A9270; J0743; J1650; J1815; J3370; J7030

== ENCOUNTER 2023-02-03 19:07 | Emergency (ER) | payer OTHER, SELFPAY ==
[2023-02-03 19:10] VITALS: BP 151/108; PULSE 130; RESP 17; TEMP 37.5; O2SAT 98
--- NOTE | 2023-02-03 23:35 | ED.GENADULT ---
[facility] - General Adult General Chief complaint: Extremity Problem,Nontraumatic Stated complaint: r leg pain Time Seen by Provider: 02/03/23 22:56 Source: patient Mode of arrival: ambulatory Limitations: no limitations History of Present Illness HPI narrative: This is a 32-year-old male with PMH of DM type 2 who presents to the ED with chief complaint of right lower extremity pain beginning 5 days ago. Reports that over the last couple of days he has had redness to the right ankle and increased swelling right foot. Reports pain with weight-bearing in tenderness to touch in the area. Denies fevers, chills, nausea, vomiting. Denies any blood clot history. Reports last A1c recently was 6.1%. He has been taking metformin and Januvia as prescribed. Related Data Allergies Allergy/AdvReac Type Severity Reaction Status Date / Time No Known Allergies Allergy Verified 02/03/23 19:16 Review of Systems Review of Systems: All systems as dictated in [facility] Past Medical History Medical History Diabetes type 2, uncontrolled Diabetic peripheral neuropathy Dyslipidemia Hypertension Medical non-compliance Optic neuritis (10/2015) Right optic nerve Surgical History Surgical History S/P debridement 05/15/21 Family History Family History Mother Rheumatoid arthritis Father Unknown family medical history Social History Social History Social History: He is single and has never been . He does not have any children. The patient lives at home with his mother and stepfather as well as several younger siblings. He is a lifelong nonsmoker and does not drink alcohol. 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 Smoking status: Never smoker Second hand tobacco smoke exposure: No Alcohol intake: never Substance use: never Substance use type: does not use Spiritual care concerns: No Exam Narrative: GENERAL: Well-appearing, well-nourished, and in no acute distress. HEAD: Normocephalic, atraumatic. EYES: PERRLA and EOMI. ENT: Nares clear, no rhinorrhea or epistaxis. Mucous membranes moist. Oropharynx without tonsillar hypertrophy exudate or other lesions. NECK: Supple. No adenopathy or masses. CHEST: No respiratory distress. Clear to auscultation. No wheezes rales or rhonchi HEART: Regular rate and rhythm. No murmur heard. Normal peripheral pulses. ABDOMEN: Soft, nontender, nondistended, normal active bowel sounds. MSK: Moderate tenderness to the right foot and right ankle ending at the mid deleon on the right side. No crepitus Left lower Extremity Benign. SKIN: Erythema and warmth to the right foot and right ankle. Swelling to the right foot with 2+ pitting edema. No area of fluctuance or induration. NEURO: Alert and oriented x3. No focal deficits. PSYCH: Normal mood and affect. Course Course Emergency Course: Re-evaluation 0139: Feeling somewhat improved on Toradol and fluids. He feels ready to go home. Heart rate has improved with fluid administration. Vital Signs Vital signs: Vital Signs Temperature 99.5 F 02/03/23 19:10 Pulse Rate 130 H 02/03/23 19:10 Respiratory Rate 17 02/03/23 19:10 Blood Pressure 151/108 H 02/03/23 19:10 Pulse Oximetry 98 02/03/23 19:10 Oxygen Delivery Room Air 02/03/23 19:10 Temperature 99.5 F 02/03/23 19:10 Pulse Rate 130 H 02/03/23 19:10 Respiratory Rate 17 02/03/23 19:10 Blood Pressure 151/108 H 02/03/23 19:10 Pulse Oximetry 98 02/03/23 19:10 Oxygen Delivery Room Air 02/03/23 19:10 Medical Decision Making MDM Narrative Medical decision making narrative: This is a 32-year-old male with history of diabetes who presents to the ED with chief complaint of right
[2023-02-03] MEDS: SODIUM CHLORIDE 0.9% IV 1,000 ML 999 ML IV CONT (23:49)
[2023-02-03] MEDS: KETOROLAC 15 MG/ML VIAL (*BKC) IV PUSH (23:51)
[2023-02-03 23:56] LABS: Basophils Percent Auto 0.2 % (0.2-1.2); Eosinophils Absolute Auto 0.2 K/mm3 (0-0.3); Eosinophils Percent Auto 1.2 % (0-4.4); Hematocrit 37.7 % (42.0-52.0); Hemoglobin 12.5 g/dL (14.0-18.0); Immature Granulocyte Absolute 0.03 K/mm3 (0.00-0.031); Immature Granulocyte Percent A 0.2 % (0-0.5); Lymphocytes Absolute Auto 2.17 K/mm3 (0.9-3.2); Lymphocytes Percent Auto 17.6 % (18.3-44.2); Mean Corpuscular HGB Conc 33.2 g/dl (32-36); Mean Corpuscular Volume 87.5 fl (80-100); Mean Platelet Volume 9.1 fl (7.4-10.4); Monocytes Absolute Auto 1.5 K/mm3 (0.1-0.6); Monocytes Percent Auto 12.1 % (2.6-8.5); Neutrophils Absolute Auto 8.5 K/mm3 (1.3-6.7); Neutrophils Percent Auto 68.7 % (45.5-73.1); Platelet Count Result 250 k/mm3 (150-375); Red Blood Count 4.31 M/mm3 (4.6-6.20); Red Cell Distribution Width 12.4 % (11.5-14.5); White Blood Count 12.4 K/mm3 (4.5-10.0)
[2023-02-04 00:16] LABS: Alanine Aminotransferase 23 U/L (6-50); Albumin Level 4.2 g/dL (3.5-5.1); Alkaline Phosphatase 62 U/L (38-126); Anion Gap 10 mmol/L (8-16); Aspartate Amino Transferase 26 U/L (17-59); Bilirubin,Total 0.5 mg/dL (0.2-1.3); Blood Urea Nitrogen 19 mg/dL (9-20); CRP 7.4 mg/dL (<1.0); Calcium 9.4 mg/dL (8.4-10.2); Carbon Dioxide 28 mmol/L (22-30); Chloride 101 mmol/L (98-107); Estimated CRCL calculation 126 ml/min; Estimated Glomerular Filt Rate > 60; Glucose 111 mg/dL (65-110); Potassium 4.2 mmol/L (3.4-5.0); Sodium 139 mmol/L (137-145)
[2023-02-04] MEDS: ceFAZolin 1 GM/NS 50 ML 1 GM/50 ML BAG IVPB (00:34)
[2023-02-04] MEDS: SODIUM CHLORIDE 0.9% IV 1,000 ML 999 ML IV CONT (00:34)
[2023-02-04 01:10] LABS: Lactic Acid Reflex 2.1 mmol/L (0.7-2.0)
[2023-02-04 04:02] LABS: Reflex Lactic Acid Yes or No Add Lactic
== END 2023-02-04 01:48 | disposition home or self-care (01) ==
PROVIDERS: Emergency Provider Physician Assistant; PCP Nurse Practitioner Family
DX: L03.115 Cellulitis of right lower limb (principal); E11.42 Type 2 diabetes mellitus with diabetic polyneuropathy; E78.5 Hyperlipidemia, unspecified; I10 Essential (primary) hypertension; H46.9 Unspecified optic neuritis; Z79.84 Long term (current) use of oral hypoglycemic drugs
CPT/HCPCS: 36415; 80053; 83605; 85025; 86140; 96361; 96365; 96374; 99284; J0690; J1885; J7030

== ENCOUNTER 2023-06-05 12:11 | Emergency (ER) | payer OTHER, SELFPAY ==
--- NOTE | ~2023-06-05 | US_ITS ---
EXAMINATION: US venous doppler [facility] DATE: 06/05/2023 15:31 INDICATION: Lower limb pain, DVT r/o . TECHNIQUE: Grayscale images without and with compression and Doppler images of the left lower extremi ty veins were obtained. COMPARISON: None FINDINGS: The left common femoral vein, profunda (deep) femoral vein, femoral vein, popliteal vein, peroneal v ein, posterior tibial veins, gastrocnemius vein, and greater saphenous vein are patent. IMPRESSION: Patent left lower extremity veins. No evidence of deep venous thrombosis. Reviewed, dictated and finalized at location K.
[2023-06-05 12:31] VITALS: BP 153/90; PULSE 102; RESP 18; TEMP 37.1; O2SAT 99
--- NOTE | 2023-06-05 12:40 | PC.NURSE ---
Pt left lower extremity swollen firm to touch, pt c/o tightness to left lower leg. Pedal Pulses Palp & bounding, slight pale discoloration noted to left extremity & left foot. x2 blood filled blisters to plantar side of left foot. Pt staetes pain 1-2 when sitting increases to 5-6 when he applies weight.
--- NOTE | 2023-06-05 14:56 | ED.EXTPRO ---
HPI - Extremity Problem General Chief complaint: Extremity Problem,Nontraumatic Stated complaint: left lower extremity pain/swelling Time Seen by Provider: 06/05/23 14:31 Source: patient and family Mode of arrival: ambulatory Limitations: no limitations History of Present Illness HPI Narrative: Patient presents with left lower extremity pain and swelling for 3 weeks. He states there is 0/10 pain currently. To touch it is 3/10 in severity and it had been 7/10 in severity. No fevers. Denies IVDU. History of diabetes complicated by decubitus ulcer and report of infection to the bone. Sent from PCP's office due to concern for blood clot. Saw Toshia Alcantara (PCP Chantelle Retana not available); through [facility] office. No shortness of breath. Has not taken pain medication. Related Data Allergies Allergy/AdvReac Type Severity Reaction Status Date / Time No Known Allergies Allergy Verified 06/05/23 12:37 [facility] Past Medical History Medical History Diabetes type 2, uncontrolled Diabetic peripheral neuropathy Dyslipidemia Hypertension Medical non-compliance Optic neuritis (10/2015) Right optic nerve Surgical History Surgical History S/P debridement 05/15/21 Family History Family History Mother Rheumatoid arthritis Father Unknown family medical history Social History Social History Social History: He is single and has never been . He does not have any children. The patient lives at home with his mother and stepfather as well as several younger siblings. He is a lifelong nonsmoker and does not drink alcohol. 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 Smoking status: Never smoker Second hand tobacco smoke exposure: No Alcohol intake: never Substance use: never Substance use type: does not use Spiritual care concerns: No Exam Narrative: GENERAL: Well-appearing, well-nourished, and in no acute distress. HEAD: Normocephalic, atraumatic. EYES: Non injected, non icteric ENT: Nares clear, no rhinorrhea or epistaxis. NECK: Supple. CHEST: Speaking in full sentences. No respiratory distress. HEART: Regular rate and rhythm. Normal S1 and S2 without murmur. . ABDOMEN: Soft, nondistended. EXTREMITIES: Normal range of motion. No edema. SKIN: Warm, dry. Firm, slightly tender to palpation fibrous cord along surface of medial aspect of left lower extremity. Hemorrhagic blood blister along plantar side left foot. Lesion r malleolus. Callous with blood blister 2nd MCP and base of R great toe. NEURO: No focal deficits. Alert and oriented x3. PSYCH: Normal mood and affect. Course Vital Signs Vital signs: Vital Signs Temperature 98.7 F 06/05/23 12:31 Pulse Rate 102 H 06/05/23 12:31 Respiratory Rate 18 06/05/23 12:31 Blood Pressure 153/90 H 06/05/23 12:31 Pulse Oximetry 99 06/05/23 12:31 Oxygen Delivery Room Air 06/05/23 12:31 Temperature 97.9 F 06/05/23 15:00 Pulse Rate 80 06/05/23 15:00 Respiratory Rate 16 06/05/23 15:00 Blood Pressure 140/90 06/05/23 15:00 Pulse Oximetry 98 06/05/23 15:00 Oxygen Delivery Room Air 06/05/23 12:31 MDM - Extremity (Nontraumatic) MDM Narrative Medical decision making narrative: Patient presetns with left lower extremity pain and swelling. In the ED he is afebrile with VS that show hypertension and mild tachycardia. PCP requesting US to rule out DVT; ordered and negative. On my exam it does have the appearance of superficial thrombophlebitis. VS abnormalities resolved. DIscharged in stable condition. Differential Diagnosis Differential diagnosis: Likely herpes zoster, cellulitis, superficial thrombophlebitis, lower extremity edema, deep vein thrombosis of lower extr
[2023-06-05 15:00] VITALS: BP 140/90; PULSE 80; RESP 16; TEMP 36.6; O2SAT 98
[2023-06-05] MEDS: IBUPROFEN 600 MG TABLET PO (16:42)
== END 2023-06-05 16:46 | disposition home or self-care (01) ==
PROVIDERS: Emergency Provider Student in an Organized Health Care Education/Training Program; PCP Nurse Practitioner Family
DX: I80.3 Phlebitis and thrombophlebitis of lower extremities, unspecified (principal); E11.42 Type 2 diabetes mellitus with diabetic polyneuropathy; E78.5 Hyperlipidemia, unspecified; I10 Essential (primary) hypertension; Z79.84 Long term (current) use of oral hypoglycemic drugs
CPT/HCPCS: 93971; 99284; A9270